=== PATIENT | male | born 1940 | race American Indian/Alaskan Native ===

== ENCOUNTER 2017-05-27 10:50 | Inpatient (IN) | payer MEDICARE ==
[~2017-05-27 10:50] MED LIST: FLAGYL 500 MG/100 ML 500 MG/100 ML BAG IV SCH
[2017-05-27] MEDS ORDERED: NEO SYNEPHRINE/NS Syringe(OR USE) IV ONE (14:00)
[2017-05-27] MEDS ORDERED: BREVIBLOC IV ONE (14:00)
--- NOTE | 2017-05-27 14:15 | Anesthesia Consultation ---
Anesthesia Consult and Med Hx Date of service: 05/27/17 - Airway Anesthetic Teeth Evaluation: Dentures ROM Head & Neck: Adequate Mental/Hyoid Distance: Adequate Mallampati Class: Class II Intubation Access Assessment: Good - Pulmonary Exam CTA: Yes - Cardiac Exam Cardiac Exam: RRR - Pre-Operative Health Status ASA Pre-Surgery Classification: ASA3 Proposed Anesthetic Plan: General - Pulmonary Hx Smoking: No Hx Sleep Apnea: Yes (DX SLEEP APNEA , BEAN VINER CPAP USE) - Cardiovascular System Hx Hypertension: Yes (X 10 YRS)
--- NOTE | 2017-05-27 14:16 | Anesthesia Day of Surgery ---
Anesthesia Day of Surgery - Day of Surgery Patient Examined: Yes Patient H&P Reviewed: Yes Patient is NPO: Yes
[2017-05-27] MEDS ORDERED: NACL 0.9% 1000 ML 1,000 ML IV SCH (15:00)
[2017-05-27 15:07] LABS: INR 0.96 (0.87-1.13)
[2017-05-27 15:08] LABS: Partial Thromboplastin Time 30.1 Sec. (24.2-36.6)
[2017-05-27] MEDS ORDERED: DILAUDID IV ONE (16:02)
[2017-05-27] MEDS ORDERED: SUBLIMAZE ONE (17:22)
[2017-05-27] MEDS ORDERED: DIPRIVAN 10 MG/ML IV ONE (17:22)
[2017-05-27] MEDS ORDERED: VERSED ONE (17:35)
[2017-05-27] MEDS ORDERED: WATER FOR IRRIG STERILE IR ONE (17:54)
[2017-05-27] MEDS ORDERED: ZOFRAN ONE (18:11)
[2017-05-27] MEDS ORDERED: DECADRON ONE (18:11)
--- NOTE | 2017-05-27 18:41 | Post Operative Note ---
Date of procedure: 05/27/17 Pre-op diagnosis: hydro left kidney Post-op diagnosis: same Procedure: endoscopy of ilieo conduit loopagram Anesthesia: LANE Surgeon: EMIGDIO GUZMAN Condition: stable Disposition: PACU (pt needs left perc tube)
[2017-05-27] MEDS ORDERED: PERCOCET 5/325 PO PRN (18:48)
[2017-05-27] MEDS ORDERED: DULCOLAX PR PRN (18:48)
[2017-05-27] MEDS ORDERED: TYLENOL PO PRN ×2 (18:48→20:40)
[2017-05-27] MEDS ORDERED: NARCAN 0.4 MG/1 ML IV PRN (18:48)
[2017-05-27] MEDS ORDERED: MILK OF MAGNESIA PO PRN (18:48)
[2017-05-27] MEDS ORDERED: ZOFRAN IV PRN (18:48)
[2017-05-27] MEDS ORDERED: OXYCODONE HCL PO PRN (18:56)
[2017-05-27] MEDS ORDERED: ACETAMINOPHEN PO PRN (18:56)
[2017-05-27] MEDS ORDERED: DILAUDID IV PRN (18:58)
[2017-05-27] MEDS ORDERED: NACL 0.45% 1000 ML 1,000 ML IV SCH (19:00)
[2017-05-27] MEDS ORDERED: ROXICODONE PO PRN (20:38)
--- NOTE | 2017-05-27 20:51 | Operative Report ---
PREOPERATIVE DIAGNOSIS: Left hydronephrosis, status post stent placement. POSTOPERATIVE DIAGNOSIS: Left hydronephrosis, status post stent placement. PROCEDURE: Loopogram and endoscopy of the ileal conduit. SURGEON: John Johansen MD ANESTHESIA: General. ANESTHESIOLOGIST: Dr. Sanjuana Sloan. ESTIMATED BLOOD LOSS: Minimal. FLUIDS: Crystalloid. COMPLICATIONS: No complications. INDICATIONS: This 76-year-old gentleman known to our service with a diagnosis of prostate cancer status post radiation therapy. The patient also has a history of bladder cancer, underwent cystectomy, ileal conduit 2008. He developed some hydronephrosis, which has been followed conservatively until the last year or so. It required a nephrostomy tube and balloon dilatation; it was done by Dr. Robertson at [facility]. Attempts to remove stent, they reviewed the images and felt it needed to be indwelling; otherwise, it would reach stricture. They removed the nephrostomy tube. I was scheduled to exchange the stent today via his conduit. Risks, benefits, and complications were explained. DESCRIPTION OF PROCEDURE: The patient was taken to the operative suite, placed in a supine position. After adequate general anesthesia, placed in a dorsal lithotomy position, prepped and draped in a sterile fashion. Loopogram was performed via the ileal conduit to understand the anatomy. The patient has a stenosis of the just proximal to the stoma with significant downward curved going back to the ureteral orifices in the appearance of a U. The stent could be appreciated in good position. Once the anatomy had been identified, I attempted to place a wire 0.035 Glidewire through the conduit. Multiple attempts, it would make the turn downward, but could not get it to turn back up towards the stent. I then used a 16 [place] red rubber catheter to try to cannulate over the wire into the conduit, but again could not make the curve upward toward the stent. I then used a flexible cystoscope to again do the same thing and was unsuccessful. At this point, a concern for perforation, I elected to stop the procedure. He was extubated and taken to recovery room. The plan at this point is to consider nephrostomy tube to help with his pain, left-sided pain, and eventually revaluation by Dr. Robertson or Interventional Radiology to exchange the stent from above. JOB# [id number] CECILIO/NTS
[2017-05-27] MEDS ORDERED: NON-FORMULARY (Melatonin [Melatonin] 5 MG) PO SCH (22:00)
[2017-05-27] MEDS: LOPRESSOR PO SCH (22:20)
[2017-05-27] MEDS: NORVASC PO SCH (22:45)
--- NOTE | 2017-05-28 09:01 | Progress Note ---
Subjective Date of service: 05/28/17 Interval history: endoscopy & loopagram of ileo conduit 05-27-17 (THOMAS) unable to exchange stent due to anatomy needs perc tube only to control hydro & pain --await time of procedure Dr. Hyatt & group to see macrobid & percocet on chart Objective - Constitutional Vitals: Vital Signs - 12hr 05/27/17 05/27/17 05/27/17 21:11 22:00 22:20 Temperature Pulse Rate 80 Respiratory 18 18 Rate Respiratory 18 Rate [Left Lower Anterior Flank] Blood Pressure 124/78 Blood Pressure [Right] O2 Sat by Pulse 97 Oximetry 05/27/17 05/28/17 05/28/17 22:45 00:30 04:32 Temperature 98.2 F 97.8 F Pulse Rate 87 72 89 Respiratory 20 20 Rate Respiratory Rate [Left Lower Anterior Flank] Blood Pressure 138/86 Blood Pressure 108/72 138/86 [Right] O2 Sat by Pulse 95 97 Oximetry 05/28/17 05/28/17 05/28/17 05:00 07:29 08:37 Temperature 99.4 F 98.0 F Pulse Rate 86 70 Respiratory 18 20 20 Rate Respiratory Rate [Left Lower Anterior Flank] Blood Pressure 117/59 141/75 Blood Pressure [Right] O2 Sat by Pulse 98 98 Oximetry - Labs Labs: Abnormal lab results 05/27/17 05/28/17 Range/Units 21:41 07:34 POC Glucose 199 H 141 H (70-105)
--- NOTE | 2017-05-28 09:11 | Consultation ---
History of Present Illness - Reason for Consult Consult date: 05/28/17 Medical management Requesting physician: EMIGDIO GUZMAN - History of Present Illness [place] S/p Endoscopy & loopagram of ileo conduit 05-27-17 (THOMAS) unable to exchange stent due to anatomy needs perc tube only to control hydro & pain In pain Past History Past Medical History: No medical history (conduit), arthritis, CAD, hypertension , hyperlipidemia, other (Chronic pain) Past Surgical History: Other Social history: lives with family, full code Family history: hypertension Medications and Allergies Allergies Allergy/AdvReac Type Severity Reaction Status Date / Time No Known Allergies Allergy Verified 05/25/17 16:49 Home Medications Medication Instructions Recorded Confirmed Last Taken Type Allopurinol [Zyloprim] 100 mg PO QDAY 05/25/17 05/25/17 05/26/17 History Apixaban [Eliquis] 2.5 mg PO DAILY 05/25/17 05/25/17 05/25/17 History AtorvaSTATin [Lipitor] 10 mg PO QHS 05/25/17 05/25/17 05/26/17 History Cholecalciferol (Vitamin D3) 2,000 unit PO DAILY 05/25/17 05/25/17 05/27/17 08: 00 History [Vitamin D3] Ciprofloxacin HCl [Cipro] 500 mg PO BID 05/25/17 05/25/17 05/26/17 History Cyanocobalamin (Vitamin B-12) 5,000 mcg PO DAILY 05/25/17 05/25/17 05/27/17 08: 00 History [Vitamin B12] Melatonin 5 mg PO QHS 05/25/17 05/25/17 05/26/17 History Metoprolol [Lopressor] 25 mg PO BID 05/25/17 05/27/17 05/27/17 08:00 History Oxycodone HCl/Acetaminophen 1 each PO Q6HR PRN 05/25/17 05/27/17 05/27/17 08:30 History [Percocet 2.5/325 mg] Testosterone [Vogelxo] 5 gm TD DAILY 05/25/17 05/25/17 05/26/17 History Ubidecarenone [Coq-10] 100 mg PO DAILY 05/25/17 05/27/17 05/27/17 07:30 History amLODIPine [Norvasc] 5 mg PO BID 05/25/17 05/27/17 05/27/17 07:30 History oxyCODONE /ACETAMINOPHEN [Percocet 1 tab PO Q4HR PRN #30 tab 05/28/17 Unknown Rx 5/325] Active Meds: Active Medications Acetaminophen (Tylenol) 650 mg PO Q4H PRN PRN Reason: Pain MILD(1-3)/Fever >100.5/[place] Acetaminophen (Tylenol) 325 mg PO Q6H PRN PRN Reason: Pain, MODERATE 4-6 Allopurinol (Zyloprim) 100 mg PO QDAY [facility] Amlodipine Besylate (Norvasc) 5 mg PO BID [facility] Last Admin: 05/27/17 22:45 Dose: Not Given Atorvastatin Calcium (Lipitor) 10 mg PO QHS [facility] Last Admin: 05/27/17 21:11 Dose: 10 mg Bisacodyl (Dulcolax) 10 mg MD QDAY PRN PRN Reason: Constipation unrelieved by MOM Cholecalciferol (Vitamin D3) 2,000 unit PO QDAY [facility] Cyanocobalamin (Vitamin B-12) 5,000 mcg PO QDAY [facility] Hydromorphone HCl (Dilaudid) 2 mg IV Q4H PRN PRN Reason: Pain , Severe (7-10) Last Admin: 05/28/17 08:37 Dose: 2 mg Sodium Chloride (Nacl 0.9% 1000 Ml) 1,000 mls @ 100 mls/hr IV DIRECT [facility] Last Admin: 05/27/17 15:00 Dose: 100 mls/hr Sodium Chloride (Nacl 0.45% 1000 Ml) 1,000 mls @ 100 mls/hr IV DIRECT [facility] Levofloxacin/Dextrose (Levaquin 500mg/100ml) 500 mg in 100 mls @ 100 mls/hr IV Q24HR [facility] PRN Reason: Protocol Magnesium Hydroxide (Milk Of Magnesia) 30 ml PO Q4H PRN PRN Reason: Constipation Metoprolol Tartrate (Lopressor) 25 mg PO BID [facility] Last Admin: 05/27/17 22:20 Dose: 25 mg Miscellaneous Medication (Melatonin [Melatonin]) 5 mg PO QHS [facility] Miscellaneous Medication (Ubidecarenone [Coq-10]) 100 mg PO DAILY [facility] Naloxone HCl (Narcan 0.4 Mg/1 Ml) 0.1 mg IV Q2MIN PRN PRN Reason: Res Rate </= 8 or 02 SAT < 92% Ondansetron HCl (Zofran) 4 mg IV Q8H PRN PRN Reason: N/V unrelieved by Reglan Oxycodone HCl (Roxicodone) 2.5 mg PO Q6H PRN PRN Reason: Pain, Moderate (4-6) Oxycodone/Acetaminophen (Percocet 5/325) 1 tab PO Q6H PRN PRN Reason: Pain, Moderate (4-6) Last Admin: 05/27/17 21:11 Dose: 1 tab Review of Systems All systems: negative Exam - Constitutional Vitals: Temp Pulse Resp BP Pulse Ox 98.0 F 70 20 141/75 98 05/28/17 07:29 05/28/17 07:29 05/28/17 08:37 05/28/17 07:29 05/28/17 07:29 General appearance: Present: no acute distress, well-nourished - EENT Eyes: Present: PERRL ENT: hearing intact, clear oral mucosa - Neck Neck: Present: supple, normal ROM - Respiratory Respiratory effort: normal Respiratory: bilateral: CTA - Cardiovascular Heart Sounds: Present: S1 & S2. Absent: rub, click - Extremities Extremities: pulses symmetrical, No edema Peripheral Pulses: within normal limits - Abdominal General gastrointestinal: Present: soft, non-tender, non-distended, normal bowel sounds Male genitourinary: Present: normal - Integumentary Integumentary: Present: clear, warm, dry - Musculoskeletal Musculoskeletal: gait normal, strength equal bilaterally - Psychiatric Psychiatric: appropriate mood/affect, intact judgment & insight - Neurologic Neurologic: CNII-XII intact, moves all extremities Results - Labs Labs: Abnormal lab results 05/27/17 05/28/17 Range/Units 21:41 07:34 POC Glucose 199 H 141 H (70-105) Assessment and Plan - Patient Problems (1) CAD (coronary artery disease) Status: Chronic Qualifiers: Coronary Disease-Associated Artery/Lesion type: [place] artery [place] vs. transplanted heart: [place] heart Associated angina: without angina Qualified Code(s): I25.10 - Atherosclerotic heart disease of [place] coronary artery without angina pectoris Plan to address problem: On Eliquis (2) Hydronephrosis Status: Resolved (3) HTN (hypertension) Status: Chronic Qualifiers: Hypertension type: essential hypertension Qualified Code(s): I10 - Essential (primary) hypertension Plan to address problem: Cont Metoprolol (4) Gout Status: Ruled-out Qualifiers: Chronicity: unspecified Plan to address problem: Cont Allopurinol (5) HLD (hyperlipidemia) Status: Chronic Qualifiers: Hyperlipidemia type: mixed hyperlipidemia Qualified Code(s): E78.2 - Mixed hyperlipidemia
[2017-05-28] MEDS: LOPRESSOR PO SCH (09:30)
[2017-05-28] MEDS: NORVASC PO SCH (09:30)
[2017-05-28] MEDS ORDERED: LEVAQUIN 500MG/100ML 500 MG/100 ML BAG IV SCH (10:00)
[2017-05-28] MEDS ORDERED: NON-FORMULARY (Cholecalciferol (Vitamin D3) [Vitamin D3] 2,000 UNIT) PO SCH (10:00)
[2017-05-28] MEDS ORDERED: VITAMIN D3 PO SCH (10:00)
[2017-05-28] MEDS ORDERED: CYANOCOBALAMIN 5000 MCG PO SCH (10:00)
[2017-05-28] MEDS ORDERED: VITAMIN B-12 PO SCH (10:00)
[2017-05-28] MEDS ORDERED: ZYLOPRIM PO SCH (10:00)
[2017-05-28] MEDS ORDERED: NON-FORMULARY (Ubidecarenone [Coq-10] 100 MG) PO SCH (10:00)
[2017-05-28] MEDS ORDERED: NACL 0.9% 0 ML IR ONE (13:12)
[2017-05-28] MEDS ORDERED: VERSED ONE (13:13)
[2017-05-28] MEDS ORDERED: XYLOCAINE MPF 2% ONE (13:13)
[2017-05-28] MEDS ORDERED: LEVAQUIN 500MG/100ML 500 MG/100 ML BAG IV ONE (13:13)
[2017-05-28] MEDS ORDERED: SUBLIMAZE ONE (13:13)
[2017-05-28] MEDS ORDERED: NACL 0.9% 500 ML 500 ML ONE (13:14)
[2017-05-28] MEDS ORDERED: NACL 0.9% 500 ML IR ONE (13:14)
[2017-05-28] MEDS ORDERED: XYLOCAINE 2% INFILTRATI ONE (13:21)
--- NOTE | 2017-05-28 14:37 | Operative Report ---
Operative Report Operative Report: EXAM: ULTRASOUND AND FLUOROSCOPIC-GUIDED PLACEMENT OF LEFT NEPHROSTOMY TUBE CLINICAL INDICATION: PATIENT WITH A HISTORY OF AN ILEAL CONDUIT WITH A STRICTURE RESULTING IN LEFT HYDRONEPHROSIS DATE: 05/28/2017 PROCEDURE: Following an explanation of the risks, benefits and alternatives; written informed consent was obtained. The patient was brought to the angiographic suite and placed in prone position on the examination table. Initial ultrasound evaluation of the left back demonstrated moderate left hydronephrosis. The patient's left back and flank were prepped and draped in the usual sterile fashion. 1% lidocaine was used for anesthesia. Under ultrasound guidance, a posterior inferior calyx was cannulated with a 1810 m 21-gauge needle. A 0.01 a guidewire was advanced centrally under fluoroscopy. The needle was removed and a neck is to transition dilator placed over the guidewire. Contrast was injected through the transition dilator which demonstrated an appropriate puncture site with opacification of a moderate to severe hydronephrotic left kidney. The proximal ureter is dilated to the level of the stricture. A 0.035 guidewire was advanced through the transition dilator and transition dilator removed. Following serial dilation over the guidewire under fluoroscopy, an 8 [place] nephrostomy tube was placed over the guidewire under fluoroscopy the pigtail coiled within the pelvis. Gentle injection of contrast demonstrated appropriate positioning and the catheter was left to dependent drainage. The catheter was securely fasten to the skibn surface using 2-0 Ethilon suture and a StatLock device. A sterile dressing was then applied. The patient tolerated the procedure well. There were no immediate post procedure complications. Conscious sedation was performed under the guidance of radiologic nursing. Continuous cardiopulmonary monitoring was preformed. IMPRESSION: 1) Ultrasound and fluoroscopic guided placement of left nephrostomy tube.
[2017-05-28 15:53] VITALS: BP 151/82
--- NOTE | 2017-05-28 16:15 | Short Stay Summary ---
Short Stay Documentation Date of service: 05/27/17 - History H&P: obtained from office Past Medical History: No medical history (conduit), arthritis, CAD, hypertension , hyperlipidemia, other (Chronic pain) Past Surgical History: Other Social history: lives with family, full code - Allergies and Medications Current Medications: Allergies No Known Allergies Allergy (Verified 05/25/17 16:49) Home Medications Medication Instructions Recorded Confirmed Last Taken Type Allopurinol [Zyloprim] 100 mg PO QDAY 05/25/17 05/25/17 05/26/17 History Apixaban [Eliquis] 2.5 mg PO DAILY 05/25/17 05/25/17 05/25/17 History AtorvaSTATin [Lipitor] 10 mg PO QHS 05/25/17 05/25/17 05/26/17 History Cholecalciferol (Vitamin D3) 2,000 unit PO DAILY 05/25/17 05/25/17 05/27/17 08: 00 History [Vitamin D3] Ciprofloxacin HCl [Cipro] 500 mg PO BID 05/25/17 05/25/17 05/26/17 History Cyanocobalamin (Vitamin B-12) 5,000 mcg PO DAILY 05/25/17 05/25/17 05/27/17 08: 00 History [Vitamin B12] Melatonin 5 mg PO QHS 05/25/17 05/25/17 05/26/17 History Metoprolol [Lopressor] 25 mg PO BID 05/25/17 05/27/17 05/27/17 08:00 History Oxycodone HCl/Acetaminophen 1 each PO Q6HR PRN 05/25/17 05/27/17 05/27/17 08:30 History [Percocet 2.5/325 mg] Testosterone [Vogelxo] 5 gm TD DAILY 05/25/17 05/25/17 05/26/17 History Ubidecarenone [Coq-10] 100 mg PO DAILY 05/25/17 05/27/17 05/27/17 07:30 History amLODIPine [Norvasc] 5 mg PO BID 05/25/17 05/27/17 05/27/17 07:30 History oxyCODONE /ACETAMINOPHEN [Percocet 1 tab PO Q4HR PRN #30 tab 05/28/17 Unknown Rx 5/325] Active Medications Acetaminophen (Tylenol) 650 mg PO Q4H PRN PRN Reason: Pain MILD(1-3)/Fever >100.5/[place] Acetaminophen (Tylenol) 325 mg PO Q6H PRN PRN Reason: Pain, MODERATE 4-6 Allopurinol (Zyloprim) 100 mg PO QDAY [facility] Last Admin: 05/28/17 09:29 Dose: Not Given Amlodipine Besylate (Norvasc) 5 mg PO BID [facility] Last Admin: 05/28/17 09:30 Dose: Not Given Atorvastatin Calcium (Lipitor) 10 mg PO QHS [facility] Last Admin: 05/27/17 21:11 Dose: 10 mg Bisacodyl (Dulcolax) 10 mg SC QDAY PRN PRN Reason: Constipation unrelieved by MOM Cholecalciferol (Vitamin D3) 2,000 unit PO QDAY [facility] Last Admin: 05/28/17 09:29 Dose: Not Given Cyanocobalamin (Vitamin B-12) 5,000 mcg PO QDAY [facility] Last Admin: 05/28/17 09:29 Dose: Not Given Hydromorphone HCl (Dilaudid) 2 mg IV Q4H PRN PRN Reason: Pain , Severe (7-10) Last Admin: 05/28/17 08:37 Dose: 2 mg Sodium Chloride (Nacl 0.9% 1000 Ml) 1,000 mls @ 100 mls/hr IV DIRECT [facility] Last Admin: 05/27/17 15:00 Dose: 100 mls/hr Sodium Chloride (Nacl 0.45% 1000 Ml) 1,000 mls @ 100 mls/hr IV DIRECT [facility] Levofloxacin/Dextrose (Levaquin 500mg/100ml) 500 mg in 100 mls @ 100 mls/hr IV Q24HR [facility] PRN Reason: Protocol Last Admin: 05/28/17 11:10 Dose: Not Given Magnesium Hydroxide (Milk Of Magnesia) 30 ml PO Q4H PRN PRN Reason: Constipation Metoprolol Tartrate (Lopressor) 25 mg PO BID [facility] Last Admin: 05/28/17 09:30 Dose: Not Given Miscellaneous Medication (Melatonin [Melatonin]) 5 mg PO QHS [facility] Miscellaneous Medication (Ubidecarenone [Coq-10]) 100 mg PO DAILY [facility] Naloxone HCl (Narcan 0.4 Mg/1 Ml) 0.1 mg IV Q2MIN PRN PRN Reason: Res Rate </= 8 or 02 SAT < 92% Ondansetron HCl (Zofran) 4 mg IV Q8H PRN PRN Reason: N/V unrelieved by Reglan Oxycodone HCl (Roxicodone) 2.5 mg PO Q6H PRN PRN Reason: Pain, Moderate (4-6) Oxycodone/Acetaminophen (Percocet 5/325) 1 tab PO Q6H PRN PRN Reason: Pain, Moderate (4-6) Last Admin: 05/27/17 21:11 Dose: 1 tab - Physical exam Extremities: pulses symmetrical, No edema - Brief post op/procedure progress note Date of procedure: 05/27/17 Pre-op diagnosis: hydronephrosis Post-op diagnosis: same Procedure: endoscopy of ilieo conduit Anesthesia: LANE Surgeon: EMIGDIO GUZMAN Pathology: none Condition: stable - Hospital course Hospital course: percocet & macrobid on chart left perc tube done by Dr. Garcia---05-28-17 - Disposition Condition at discharge: Stable Disposition: DC-30 STILL A PATIENT Short Stay Discharge Plan Follow up with: EMIGDIO GUZMAN MD [Primary Care Provider] - 7 Days Prescriptions: oxyCODONE /ACETAMINOPHEN [Percocet 5/325] 1 tab PO Q4HR PRN #30 tab PRN Reason: Pain
--- NOTE | 2017-05-30 00:04 | Progress Note ---
Assessment and Plan - Patient Problems (1) CAD (coronary artery disease) Status: Chronic Qualifiers: Coronary Disease-Associated Artery/Lesion type: [place] artery [place] vs. transplanted heart: [place] heart Associated angina: without angina Qualified Code(s): I25.10 - Atherosclerotic heart disease of [place] coronary artery without angina pectoris Plan to address problem: On Eliquis (2) HTN (hypertension) Status: Chronic Qualifiers: Hypertension type: essential hypertension Qualified Code(s): I10 - Essential (primary) hypertension Plan to address problem: Cont Metoprolol (3) HLD (hyperlipidemia) Status: Chronic Qualifiers: Hyperlipidemia type: mixed hyperlipidemia Qualified Code(s): E78.2 - Mixed hyperlipidemia Plan to address problem: cont statins Subjective Date of service: 05/29/17
== END 2017-05-28 17:20 | disposition home or self-care (01) | DRG 694 ==
LOC: OR 10:50 → 3B-SURG 18:48
PROVIDERS: ADMIT Urology; ATTEND Urology
PROC: BT1 Imaging, Urinary System, Fluoroscopy (ICD-10-PCS; principal; 2017-05-27)
PROC: 0T9430Z Drainage of Left Kidney Pelvis with Drainage Device, Percutaneous Approach (ICD-10-PCS; 2017-05-28)
DX: N13.30 Unspecified hydronephrosis (principal); I25.10 Atherosclerotic heart disease of native coronary artery without angina pectoris; M19.90 Unspecified osteoarthritis, unspecified site; E78.5 Hyperlipidemia, unspecified; G89.29 Other chronic pain; M10.9 Gout, unspecified; I10 Essential (primary) hypertension; Z82.49 Family history of ischemic heart disease and other diseases of the circulatory system; C61 Malignant neoplasm of prostate; Z85.51 Personal history of malignant neoplasm of bladder; Z92.21 Personal history of antineoplastic chemotherapy
CPT/HCPCS: 36415; 50432; 82962; 85610; 85730; A4217; A9270-GY; C1729; C1751; C1758; C1769; C2617; J1100; J1170; J1956; J2250; J2370; J2405; J2704; J3010; J7030; J7040; Q9967

== ENCOUNTER 2017-06-14 10:17 | Day surgery (SDC) | payer MEDICARE ==
[~2017-06-14 10:17] MED LIST changes: +ANCEF/STERILE WATER 2 GM/20 ML 2 GM/20 ML SYRINGE IV NR; -FLAGYL 500 MG/100 ML 500 MG/100 ML BAG IV SCH; +NACL 0.9% 1000 ML 1,000 ML IV SCH
--- NOTE | 2017-06-14 10:36 | Short Stay Summary ---
Short Stay Documentation Date of service: 06/14/17 - History Principal diagnosis: Left ureteral stricture Past Medical History: other (left hydronephrosis) Past Surgical History: Other (iliel loop) Social history: no significant social history - Allergies and Medications Current Medications: Allergies No Known Allergies Allergy (Verified 05/25/17 16:49) Home Medications Medication Instructions Recorded Confirmed Last Taken Type Allopurinol [Zyloprim] 100 mg PO QDAY 05/25/17 05/25/17 05/26/17 History Apixaban [Eliquis] 2.5 mg PO DAILY 05/25/17 05/25/17 05/25/17 History AtorvaSTATin [Lipitor] 10 mg PO QHS 05/25/17 05/25/17 05/26/17 History Cholecalciferol (Vitamin D3) 2,000 unit PO DAILY 05/25/17 05/25/17 05/27/17 08: 00 History [Vitamin D3] Ciprofloxacin HCl [Cipro] 500 mg PO BID 05/25/17 05/25/17 05/26/17 History Cyanocobalamin (Vitamin B-12) 5,000 mcg PO DAILY 05/25/17 05/25/17 05/27/17 08: 00 History [Vitamin B12] Melatonin 5 mg PO QHS 05/25/17 05/25/17 05/26/17 History Metoprolol [Lopressor] 25 mg PO BID 05/25/17 05/27/17 05/27/17 08:00 History Oxycodone HCl/Acetaminophen 1 each PO Q6HR PRN 05/25/17 05/27/17 05/27/17 08:30 History [Percocet 2.5/325 mg] Testosterone [Vogelxo] 5 gm TD DAILY 05/25/17 05/25/17 05/26/17 History Ubidecarenone [Coq-10] 100 mg PO DAILY 05/25/17 05/27/17 05/27/17 07:30 History amLODIPine [Norvasc] 5 mg PO BID 05/25/17 05/27/17 05/27/17 07:30 History oxyCODONE /ACETAMINOPHEN [Percocet 1 tab PO Q4HR PRN #30 tab 05/28/17 Unknown Rx 5/325] Active Medications Cefazolin Sodium (Ancef/Sterile Water 2 Gm/20 Ml) 2 gm in 20 mls @ 80 mls/hr IV PREOP NR PRN Reason: Protocol Stop: 06/14/17 23:59 Sodium Chloride (Nacl 0.9% 1000 Ml) 1,000 mls @ 42 mls/hr IV DIRECT [facility] - Physical exam General appearance: no acute distress HEENT: Atraumatic Lungs: Normal air movement Breasts: deferred Gastrointestinal: normal Male Genitourinary: deferred Rectal Exam: deferred Extremities: no ischemia Neurological: Normal speech - Brief post op/procedure progress note Date of procedure: 06/14/17 Pre-op diagnosis: Left ureteral stricture Post-op diagnosis: same Procedure: neph exchange, ureteral angioplasty Anesthesia: local Surgeon: SARI SEXTON Estimated blood loss: none Pathology: none Condition: stable - Disposition Condition at discharge: Good Disposition: DC-01 TO HOME OR SELFCARE Short Stay Discharge Plan Activity: advance as tolerated Weight Bearing Status: Weight Bear as Tolerated Diet: regular Wound: keep clean and dry, per your surgeon's advice Follow up with: ROCIO MONTEMAYOR MD [Primary Care Provider] - 7 Days
[2017-06-14] MEDS ORDERED: NACL 0.9% 500 ML 500 ML IV SCH (11:00)
[2017-06-14 11:04] LABS: Basophils % (Auto) 0.6 % (0.0-1.8); Eosinophils % (Auto) 2.6 % (0.0-4.3); Hematocrit 40.6 % (35.5-45.6); Hemoglobin 13.4 gm/dl (11.8-15.2); Mean Corpuscular HGB Conc 33 % (32-34); Mean Corpuscular Hemoglobin 32 pg (28-32); Mean Corpuscular Volume 98 fl (84-94); Platelet Count 219 K/mm3 (140-440); Red Blood Count 4.17 M/mm3 (3.65-5.03); Red Cell Distribution Width 14.3 % (13.2-15.2); White Blood Count 6.2 K/mm3 (4.5-11.0)
[2017-06-14 11:20] LABS: Calcium 9.4 mg/dL (8.4-10.2); Chloride 104.3 mmol/L (98-107); Potassium 4.8 mmol/L (3.6-5.0)
[2017-06-14] MEDS ORDERED: NACL 0.9% 250ML 250 ML ONE (12:50)
[2017-06-14] MEDS ORDERED: NACL 0.9% 500 ML IR ONE (12:50)
[2017-06-14] MEDS ORDERED: XYLOCAINE 2% INFILTRATI ONE (12:50)
[2017-06-14] MEDS ORDERED: ANCEF/STERILE WATER 2 GM/20 ML 0 GM/0 ML SYRINGE IV ONE (12:51)
[2017-06-14] MEDS ORDERED: LEVAQUIN 500MG/100ML 500 MG/100 ML BAG IV ONE (12:52)
[2017-06-14] MEDS: VERSED ONE ×2 (13:00→13:32)
[2017-06-14] MEDS: SUBLIMAZE ONE ×3 (13:00→14:07)
--- NOTE | 2017-06-14 14:43 | Operative Report ---
Operative Report Operative Report: EXAM: LEFT NEPHROSTOMY, LEFT NEPHROSTOMY TUBE EXCHANGE, URETERAL ANGIOPLASTY CLINICAL INDICATION: PATIENT WITH A HISTORY OF A ILEAL LOOP AND URETERAL STRICTURE WITH INDWELLING URETERAL STENT DATE: 06/14/2017 PROCEDURE: Following an excellent amputation of the risks, benefits and alternatives; written informed consent was obtained. The patient was brought to the injury suite and placed in prone position on the examination table. His back and indwelling ostomy tube were prepped and draped in usual sterile fashion. 1% lidocaine was used for anesthesia the catheter exit site along the track. Initial fluoroscopic images demonstrated malposition of the patient's indwelling ureteral stent. Contrast was injected through the indwelling nephrostomy tube which stems started appropriate positioning. Nephrostomy tube was cut to release the pigtail on a 0.035 guidewire was advanced through the tube into the proximal ureter. The tube was then removed intact. A 7 [place] sheath was then advanced over the guidewire into the proximal ureter. A 4 [place] vertebral catheter and 0.035 guidewire were then used to cannulate the ureter distally. The guidewire would easily advance through the eye ureteral stricture in the distal ureter just proximal to the ileal loop. The patient's indwelling ureteral stent has fallen down with the majority of the stent within the ileal conduit and only the proximal pigtail occluding the patient's distal ureter at the area of the stricture. A variety of catheters and guidewires were manipulated through this stricture into the distal aspect of the ileal loop. Given the near occlusion of the proximal end of the stent at the stricture the ureteral stenosis is magnified. No catheter with past distal to the stricture. The 0.035 guidewire was exchanged for an O18 guidewire and the vertebral catheter removed. A 3 mm x 80 mm balloon was an expanded across the stricture and insufflated to 6 kenneth for 2 minutes. Post insufflation imaging demonstrated minimal channel through the distal ureter. Decision made to treat this area with drug-coated balloon. A 4 mm drug-coated balloon was advanced across the stricture and deployed. The balloon was insufflated to 6 kenneth for 3 minutes. Post deployment imaging demonstrated minimal improve luminal flow. At this point, the balloon and sheaths were removed and a new 8 [place] fast me to be transferred the guidewire and position with a pigtail within the renal pelvis. The guidewire was removed and the catheter securely fastened to the skin surface using 2-0 Ethilon sutureOf ice. It was placed to dependent drainage. A sterile dressing was then applied. The patient tolerated the procedure well. There were no immediate post procedure competitions. Conscious sedation was performed of the guidance of radiologic nursing. Continuous cardio pulmonary monitoring was utilized. IMPRESSION: 1) Nephrostogram demonstrating appropriate positioning of the decompressed kidney around a pigtail. There is malpositioning of the ureteral stent with proximal pigtail within the distal ureteral stricture. 2) Ureteroplastyc of the distal ureteral stricture. 3) Exchange of nephrostomy tube. 4) The patient will need to be scheduled for cystogram with stent removal from the ileal loop followed by placement of a new ureteral stent from in antegrade approach with additional ureteroplasty.
[2017-06-14 15:19] VITALS: BP 146/87
== END 2017-06-14 15:30 | disposition home or self-care (01) ==
LOC: CATHLABREC 10:17
PROVIDERS: ATTEND Radiology Diagnostic Radiology
DX: N13.1 Hydronephrosis with ureteral stricture, not elsewhere classified (principal); Z79.899 Other long term (current) drug therapy; Z79.01 Long term (current) use of anticoagulants
CPT/HCPCS: 36415; 50435; 50706; 80048; 85025; 99156; 99157; C1725; C1729; C1769; C1773; C1887; J1956; J2250; J3010; J7050; J0690; Q9967

== ENCOUNTER 2017-06-21 10:42 | Day surgery (SDC) | payer MEDICARE ==
[2017-06-21] MEDS ORDERED: NACL 0.9% 500 ML 500 ML IV SCH (12:00)
--- NOTE | 2017-06-21 12:01 | Short Stay Summary ---
Short Stay Documentation Date of service: 06/21/17 - History Principal diagnosis: ureteral stricture Past Medical History: cancer, ESRD Past Surgical History: Other (ilieal loop) Social history: no significant social history - Allergies and Medications Current Medications: Allergies No Known Allergies Allergy (Verified 05/25/17 16:49) Home Medications Medication Instructions Recorded Confirmed Last Taken Type Apixaban [Eliquis] 2.5 mg PO DAILY 05/25/17 06/14/17 06/10/17 History AtorvaSTATin [Lipitor] 10 mg PO QHS 05/25/17 06/14/17 06/13/17 History Cholecalciferol (Vitamin D3) 2,000 unit PO DAILY 05/25/17 06/14/17 06/14/17 08: 00 History [Vitamin D3] Cyanocobalamin (Vitamin B-12) 5,000 mcg PO DAILY 05/25/17 06/14/17 06/14/17 08: 00 History [Vitamin B12] Melatonin 5 mg PO QHS 05/25/17 06/14/17 06/13/17 History Metoprolol [Lopressor] 25 mg PO BID 05/25/17 06/14/17 06/14/17 08:00 History Testosterone [Vogelxo] 5 gm TD DAILY 05/25/17 06/14/17 06/13/17 History Ubidecarenone [Coq-10] 100 mg PO DAILY 05/25/17 06/14/17 06/14/17 07:30 History amLODIPine [Norvasc] 5 mg PO BID 05/25/17 06/14/17 06/14/17 08:00 History oxyCODONE /ACETAMINOPHEN [Percocet 1 tab PO Q4HR PRN #30 tab 05/28/17 06/14/17 06/14/17 09:30 Rx 5/325] Omeprazole 20 mg PO DAILY 06/14/17 06/14/17 06/14/17 08:00 History Oxycodone HCl/Acetaminophen 1 each PO Q6HR PRN #40 tablet 06/14/17 Unknown Rx [Percocet 10/325 mg] Active Medications Sodium Chloride (Nacl 0.9% 500 Ml) 500 mls @ 50 mls/hr IV DIRECT CAMI Stop: 06/21/17 21:59 - Physical exam General appearance: no acute distress Integumentary: no rash HEENT: Atraumatic Lungs: Normal air movement Breasts: deferred Heart: Regular rate Gastrointestinal: normal Male Genitourinary: deferred Female Genitourinary: deferred Rectal Exam: deferred Extremities: no ischemia Neurological: Normal gait, Normal speech - Brief post op/procedure progress note Date of procedure: 06/21/17 Pre-op diagnosis: ureteral stenosis Post-op diagnosis: same Procedure: ureteral stent placement, neph tube placement Anesthesia: local Surgeon: SARI SEXTON Estimated blood loss: none Condition: stable - Disposition Condition at discharge: Good Disposition: DC-01 TO HOME OR SELFCARE Short Stay Discharge Plan Activity: advance as tolerated Weight Bearing Status: Weight Bear as Tolerated Diet: regular Wound: keep clean and dry, per your surgeon's advice Follow up with: ROCIO MONTEMAYOR MD [Primary Care Provider] - 7 Days SARI SEXTON MD [Staff Physician] - 06/25/17 8:00 am (F/u at our office)
[2017-06-21 12:08] LABS: Basophils % (Auto) 0.4 % (0.0-1.8); Eosinophils % (Auto) 1.7 % (0.0-4.3); Hematocrit 39.6 % (35.5-45.6); Hemoglobin 13.7 gm/dl (11.8-15.2); Mean Corpuscular HGB Conc 34 % (32-34); Mean Corpuscular Hemoglobin 34 pg (28-32); Mean Corpuscular Volume 97 fl (84-94); Platelet Count 187 K/mm3 (140-440); Red Blood Count 4.07 M/mm3 (3.65-5.03); Red Cell Distribution Width 13.7 % (13.2-15.2); White Blood Count 6.5 K/mm3 (4.5-11.0)
[2017-06-21 12:21] LABS: Calcium 9.4 mg/dL (8.4-10.2); Chloride 103.2 mmol/L (98-107); Potassium 5.1 mmol/L (3.6-5.0)
[2017-06-21 12:22] LABS: INR 0.95 (0.87-1.13)
[2017-06-21] MEDS ORDERED: NACL 0.9% 500 ML IR ONE (15:33)
[2017-06-21] MEDS ORDERED: ANCEF/STERILE WATER 2 GM/20 ML 0 GM/0 ML SYRINGE IV ONE (15:34)
[2017-06-21] MEDS ORDERED: XYLOCAINE 2% INFILTRATI ONE (15:34)
[2017-06-21] MEDS ORDERED: SUBLIMAZE ONE (15:34)
[2017-06-21] MEDS ORDERED: VERSED ONE (15:34)
[2017-06-21] MEDS ORDERED: LEVAQUIN 500MG/100ML 500 MG/100 ML BAG IV ONE (15:35)
--- NOTE | 2017-06-21 16:33 | Operative Report ---
Operative Report Operative Report: EXAM: LEFT NEPHROSTOGRAM, REPLACEMENT OF LEFT NEPHROSTOMY TUBE, INSERTION OF LEFT URETERAL STENT, ANGIOPLASTY OF DISTAL LEFT URETER CLINICAL INDICATION: PATIENT WITH A HISTORY OF AN ILEAL LOOP RECONSTRUCTION WITH STENOSIS AT THE DISTAL URETER AND HYDRONEPHROSIS THE DATE: 06/21/2017 PROCEDURE: Following an explanation of the risks, benefits and alternatives; written informed consent was obtained. The patient was brought to the injury graphic suite and placed in prone position on the examination table. Initial evaluation of the back demonstrated an intact nephrostomy tube. No erythema or exudates were identified. The patient's left back and nephrostomy tube were prepped and draped in usual sterile fashion. 1% lidocaine was used for anesthesia at the catheter exit site along the tunnel tract. Contrast was gently injected through the indwelling nephrostomy tube which demonstrated prompt opacification and mild hydronephrosis of. There is opacification of the proximal mid and distal ureter. The ileal conduit is not identified. The catheter was cut to release the pigtail and a 0.035 guidewire advanced through the catheter and coiled within the renal pelvis. Nephrostomy tube was then removed intact and a 4 Bolivian vertebral catheter placed over the guidewire. Together the guidewire and catheter were manipulated into the distal ureter under fluoroscopy. The catheter was removed and a 6 Bolivian sheath placed over the guidewire and advanced to the distal ureter. The guidewire and catheter were advanced through the stenotic distal ureter into the ileal conduit. Contrast was injected to document opacification of the ileal conduit. The guidewire was then coiled within the ileal conduit and the catheter and sheath removed. A 7 Bolivian sheath was then placed over the guidewire and advanced into the proximal ureter. A 7 Bolivian 24 cm ureteral stent was then advanced over the guidewire under fluoroscopy to position the distal pigtail within the low conduit in the proximal pigtail within the renal pelvis. The ureteral stent was deployed. Following placement of the ureteral stent. The guidewire was withdrawn proximally and coiled within the renal pelvis. The sheath was removed. A new 8 Bolivian nephrostomy tube was advanced over the guidewire and positioned with the pigtail within the renal pelvis. The guidewire was removed. Contrast was injected through the indwelling nephrostomy tube which demonstrated prompt opacification of the renal pelvis with appropriate positioning of the nephrostomy tube. There is opacification of both the ureter and ureteral stent with transit of contrast into the ileal loop. The catheter was securely fasten the skin surface using 2-0 Ethilon suture and a staple aches device. The catheter was then placed to dependent drainage and a sterile dressing applied. The patient tolerated the procedure well. There were no immediate post procedure complications. Conscious sedation was performed under the guidance of radiologic nursing. Continuous cardiopulmonary monitoring was utilized. IMPRESSION: 1) Left nephrostogram through indwelling nephrostomy tube demonstrating mild hydronephrosis. 2) Ureteroplasty of distal ureteral stenosis. 3) Placement of a 7 Bolivian by 24 cm ureteral stent. 4) Placement of a new indwelling nephrostomy tube.
[2017-06-21 17:46] VITALS: BP 136/90
== END 2017-06-21 17:58 | disposition home or self-care (01) ==
LOC: CATHLABREC 10:42
PROVIDERS: ATTEND Radiology Diagnostic Radiology
DX: N13.1 Hydronephrosis with ureteral stricture, not elsewhere classified (principal); N18.6 End stage renal disease; Z98.890 Other specified postprocedural states; Z79.899 Other long term (current) drug therapy
CPT/HCPCS: 36415; 50435; 50695; 50706; 80048; 85025; 85610; 85730; 99156; 99157; C1729; C1751; C1769; C1887; C2617; J1956; J2250; J3010; J7040; J0690; Q9967

== ENCOUNTER 2017-08-09 08:17 | Day surgery (SDC) | payer MEDICARE ==
[2017-08-09 08:49] LABS: Basophils % (Auto) 0.5 % (0.0-1.8); Eosinophils # (Auto) 0.1 K/mm3 (0.0-0.4); Hematocrit 38.8 % (35.5-45.6); Hemoglobin 13.1 gm/dl (11.8-15.2); Lymphocytes # (Auto) 1.4 K/mm3 (1.2-5.4); Lymphocytes % (Auto) 21.8 % (13.4-35.0); Mean Corpuscular HGB Conc 34 % (32-34); Mean Corpuscular Hemoglobin 33 pg (28-32); Mean Corpuscular Volume 96 fl (84-94); Monocytes # (Auto) 0.8 K/mm3 (0.0-0.8); Platelet Count 261 K/mm3 (140-440); Red Blood Count 4.03 M/mm3 (3.65-5.03)
[2017-08-09 08:52] VITALS: BP 137/84
[2017-08-09 08:59] LABS: INR 1.13 (0.87-1.13)
[2017-08-09 09:01] LABS: Calcium 9.1 mg/dL (8.4-10.2)
[2017-08-09 09:07] LABS: Partial Thromboplastin Time 32.3 Sec. (24.2-36.6)
--- NOTE | 2017-08-09 09:42 | Short Stay Summary ---
Short Stay Documentation Date of service: 08/09/17 - History Principal diagnosis: Ureteral stricture/hydronephrosis H&P: obtained from office - Allergies and Medications Current Medications: Allergies No Known Allergies Allergy (Verified 05/25/17 16:49) Home Medications Medication Instructions Recorded Confirmed Last Taken Type Apixaban [Eliquis] 2.5 mg PO DAILY 05/25/17 08/09/17 08/09/17 History 2.5mg AtorvaSTATin [Lipitor] 10 mg PO QHS 05/25/17 08/09/17 08/08/17 History 10mg Cholecalciferol (Vitamin D3) 2,000 unit PO DAILY 05/25/17 08/09/17 08/09/17 History [Vitamin D3] 2000 units Cyanocobalamin (Vitamin B-12) 5,000 mcg PO DAILY 05/25/17 08/09/17 08/09/17 History [Vitamin B12] 5000mcg Melatonin 5 mg PO QHS 05/25/17 08/09/17 08/08/17 History 5mg Metoprolol [Lopressor] 25 mg PO BID 05/25/17 08/09/17 08/09/17 History 25mg Testosterone [Vogelxo] 5 gm TD DAILY 05/25/17 08/09/17 08/09/17 History 5gm Ubidecarenone [Coq-10] 100 mg PO DAILY 05/25/17 08/09/17 08/09/17 History 100mg amLODIPine [Norvasc] 5 mg PO BID 05/25/17 08/09/17 08/09/17 History 5mg Oxycodone HCl/Acetaminophen 1 each PO Q6HR PRN #20 tablet 06/21/17 08/09/17 Rx [Percocet 10/325 mg] 1 Docusate Sodium [Colace] 100 mg PO BID PRN #40 capsule 08/09/17 Unknown Rx Oxycodone HCl/Acetaminophen 1 each PO Q6HR PRN #40 tablet 08/09/17 Unknown Rx [Percocet 10/325 mg] - Brief post op/procedure progress note Date of procedure: 08/09/17 Pre-op diagnosis: Ureteral stricture/hydronephrosis Post-op diagnosis: same Procedure: Not done secondary to patient being on Eliquis Surgeon: SARI SEXTNO - Disposition Condition at discharge: Good Disposition: DC-01 TO HOME OR SELFCARE Short Stay Discharge Plan Activity: no restrictions Follow up with: ROCIO MONTEMAYOR MD [Primary Care Provider] - 7 Days Prescriptions: Docusate Sodium [Colace] 100 mg PO BID PRN #40 capsule PRN Reason: Constipation Oxycodone HCl/Acetaminophen [Percocet 10/325 mg] 1 each PO Q6HR PRN #40 tablet PRN Reason: Pain
== END 2017-08-09 09:33 | disposition home or self-care (01) ==
LOC: CATHLABREC 08:17
PROVIDERS: ATTEND Radiology Diagnostic Radiology
DX: N13.1 Hydronephrosis with ureteral stricture, not elsewhere classified (principal); C67.9 Malignant neoplasm of bladder, unspecified; Z79.899 Other long term (current) drug therapy; Z79.01 Long term (current) use of anticoagulants; Z53.8 Procedure and treatment not carried out for other reasons
CPT/HCPCS: 36415; 80048; 85025; 85610; 85730; J7030

== ENCOUNTER 2017-08-11 05:55 | Day surgery (SDC) | payer MEDICARE ==
[2017-08-11 06:52] LABS: INR 0.99 (0.87-1.13); Partial Thromboplastin Time 29.4 Sec. (24.2-36.6)
[2017-08-11] MEDS ORDERED: NACL 0.9% 500 ML IR ONE (07:51)
[2017-08-11] MEDS ORDERED: ANCEF/STERILE WATER 2 GM/20 ML 2 GM/20 ML SYRINGE IV ONE (07:52)
[2017-08-11] MEDS ORDERED: XYLOCAINE 2% INFILTRATI ONE (07:52)
[2017-08-11] MEDS ORDERED: NACL 0.9% 500 ML 500 ML IV SCH (08:00)
[2017-08-11] MEDS: SUBLIMAZE ONE ×2 (08:12→08:46)
[2017-08-11] MEDS: VERSED ONE ×2 (08:12→08:46)
[2017-08-11] MEDS ORDERED: ROXICODONE PO NR (10:00)
[2017-08-11] MEDS ORDERED: PERCOCET 5/325 PO NR (10:00)
--- NOTE | 2017-08-11 10:31 | Short Stay Summary ---
Short Stay Documentation Date of service: 08/11/17 - History Principal diagnosis: left ureteral stricture H&P: obtained from office - Allergies and Medications Current Medications: Allergies No Known Allergies Allergy (Verified 05/25/17 16:49) Home Medications Medication Instructions Recorded Confirmed Last Taken Type Apixaban [Eliquis] 2.5 mg PO DAILY 05/25/17 08/11/17 08/09/17 History 2.5mg AtorvaSTATin [Lipitor] 10 mg PO QHS 05/25/17 08/11/17 08/10/17 History Cholecalciferol (Vitamin D3) 2,000 unit PO DAILY 05/25/17 08/11/17 08/10/17 History [Vitamin D3] Cyanocobalamin (Vitamin B-12) 5,000 mcg PO DAILY 05/25/17 08/11/17 08/10/17 History [Vitamin B12] Melatonin 5 mg PO QHS 05/25/17 08/11/17 08/10/17 History Metoprolol [Lopressor] 25 mg PO BID 05/25/17 08/11/17 08/10/17 History Testosterone [Vogelxo] 5 gm TD DAILY 05/25/17 08/11/17 08/10/17 History Ubidecarenone [Coq-10] 100 mg PO DAILY 05/25/17 08/11/17 08/10/17 History amLODIPine [Norvasc] 5 mg PO BID 05/25/17 08/11/17 08/10/17 History Oxycodone HCl/Acetaminophen 1 each PO Q6HR PRN #20 tablet 06/21/17 08/09/17 Rx [Percocet 10/325 mg] 1 Docusate Sodium [Colace] 100 mg PO BID PRN #40 capsule 08/09/17 08/11/17 Rx Oxycodone HCl/Acetaminophen 1 each PO Q6HR PRN #40 tablet 08/09/17 08/11/17 05: 20 Rx [Percocet 10/325 mg] Active Medications Sodium Chloride (Nacl 0.9% 500 Ml) 500 mls @ 50 mls/hr IV DIRECT CAMI Last Admin: 08/11/17 08:05 Dose: 500 mls Oxycodone/Acetaminophen (Percocet 5/325) 1 tab PO ONCE NR Stop: 08/11/17 11:00 Last Admin: 08/11/17 09:55 Dose: 1 tab - Brief post op/procedure progress note Date of procedure: 08/11/17 Pre-op diagnosis: left ureteral stricture Post-op diagnosis: same Procedure: Removal of indwelling left ureteral stent Ureteroplasty of ureteral stricture Placement of new left ureteral stent Placement of new left nephrostomy tube Anesthesia: local Surgeon: SARI SEXTON Estimated blood loss: none Pathology: none Condition: stable - Disposition Condition at discharge: Good Disposition: DC-01 TO HOME OR SELFCARE Short Stay Discharge Plan Activity: advance as tolerated Weight Bearing Status: Weight Bear as Tolerated Diet: regular Wound: keep clean and dry, per your surgeon's advice Follow up with: ROCIO MONTEMAYOR MD [Primary Care Provider] - 7 Days
--- NOTE | 2017-08-11 10:39 | Operative Report ---
Operative Report Operative Report: EXAM: PLACEMENT OF ACCESS INTO LEFT KIDNEY, REMOVAL OF INDWELLING LEFT URETERAL STENT, URETEROPLASTY, PLACEMENT OF NEW LEFT URETERAL STENT, PLACEMENT OF NEW LEFT NEPHROSTOMY TUBE CLINICAL INDICATION: LEFT URETERAL STRICTURE DATE: 08/11/2017 PROCEDURE: Following an expiration of the risks, benefits and alternatives; written informed consent was obtained. The patient was brought to the angiographic suite and placed in prone position on the examination table. Initial ultrasound evaluation of his back demonstrated moderate left hydronephrosis. The patient's left back and flank were prepped and draped in the usual sterile fashion. 1% lidocaine was used for anesthesia. Under ultrasound guidance, a 15 cm 21-gauge needle was advanced into an upper pole posterior calyx. A 0.018 mandrel wire was then advanced into the proximal ureter. The needle was removed and a AccuStick transition dilator placed over the guidewire and advanced into the renal pelvis. The trocar and wire were removed and a 0.035 guidewire was then advanced and manipulated into the proximal ureter. The transition dilator was removed and a 4 [place]onian vertebral catheter placed over the guidewire and advanced together with the guidewire into the distal ureter. The vertebral catheter was removed and a 7 [place]onian 45 cm sheath placed over the guidewire and advanced into the distal ureter. The trocar was removed. Contrast was injected through the indwelling sheath which demonstrates 95% ureteral stenosis involving the distal anastomotic stricture. Proximally there is ureteral dilatation with hydronephrosis. The vertebral catheter was again advanced in together a 0.035 guidewire vertebral catheter were manipulated into the ileal conduit a. Contrast was injected to document appropriate positioning. The patients indwelling ureteral stent was noted The vertebral catheter was then advanced more distally into the ileal conduit and the 0.035 guidewire exchanged for a 0.018 guidewire. Scoring of the lesion was then performed using a flex catheter. Ureteroplasty was performed using a 4 mm balloon followed by ureteroplasty using a 4 mm drug-coated balloon. Post ureteroplasty imaging demonstrated improved luminal flow throughout the previously noted stricture. The vertebral catheter was again advanced over the guidewire and the guidewire exchanged for an 035 guidewire. A 7 Cam[place]onian by 28 cm ureteral stent was then advanced through the sheath and deployed with the distal pigtail within the ileal conduit in the proximal pigtail within the renal pelvis. The sheath was removed. I'd wire was withdrawn proximally into the renal pelvis and a [place]onian nephrostomy tube placed over the guidewire. Postplacement imaging demonstrated appropriate positioning with hydronephrosis and drainage of contrast through the ureteral stent. The catheter was securely fastened of the skin surface using a Sta-Fix device and placed to dependent drainage. Sterile dressings were then applied. The patient tolerated the procedure well. There were no immediate post procedure complications. Conscious sedation was performed under the guidance of radiologic nursing. Continuous cardiopulmonary monitoring was utilized. IMPRESSION: 1) US guided access to the left kidney. 2) Imaging of the kidney and ureter demonstrating moderate hydronephrosis and proximal hydroureter with a 95% ureteral stenosis involving the anastomosis with the ileal conduit.3) Treatment of the stenosis using flex catheter for scoring and drug-coated balloon. 4) Placement of a new 7 Cam[place]onian by 28 cm ureteral stent. 5) Placement of a new 8 Cam[place]onian nephrostomy tube.
[2017-08-11 11:19] VITALS: BP 138/82
== END 2017-08-11 11:24 | disposition home or self-care (01) ==
LOC: CATHLABREC 05:55
PROVIDERS: ATTEND Radiology Diagnostic Radiology
DX: N13.1 Hydronephrosis with ureteral stricture, not elsewhere classified (principal); C67.9 Malignant neoplasm of bladder, unspecified; K21.9 Gastro-esophageal reflux disease without esophagitis; E78.5 Hyperlipidemia, unspecified; M19.90 Unspecified osteoarthritis, unspecified site; E11.69 Type 2 diabetes mellitus with other specified complication; I10 Essential (primary) hypertension; Z79.01 Long term (current) use of anticoagulants; Z98.890 Other specified postprocedural states; Z79.899 Other long term (current) drug therapy; Z85.51 Personal history of malignant neoplasm of bladder
CPT/HCPCS: 36415; 50384; 50432; 50693; 50695; 50706; 85610; 85730; 99156; 99157; C1725; C1729; C1751; C1769; C1887; C1894; C2617; J0690; J2250; J3010; J7040; Q9967